=== PATIENT | female | born 1985 | race African-American/Black ===

== ENCOUNTER 2018-03-06 07:11 | Emergency (ER) | payer OTHER ==
[~2018-03-06] VITALS: Ht 152.4 cm; Wt 61.7 kg
--- NOTE | ~2018-03-06 | EKG ---
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
[~2018-03-06 07:11] MED LIST: AUGMENTIN 875875 MG PO; CENTRUM SILVER1 EAC4 PO; FLAGYL500 MG PO; IBUPROFEN 200200 M1 PO; IBUPROFEN 600600 M1 PO; KEFLEX500 M1 PO; NOHOMEMEDICATIONS; NORCO 5-325 TA1 EACH PO; PROTONIX40 M1 PO; TYLENOL SINUS1 EAC5 PO; ZPAK PO
[2018-03-06 07:43] LABS: ABSOLUTE NEUTROPHILS 3.4 thou/uL (1.4-8.2); EOSINOPHILS 1.1 % (0.0-3.0); LYMPHOCYTES 29.6 % (24.0-44.0); MCH 32.3 pg (26.0-34.0); MCHC 34.3 g/dL (28.0-37.0); MCV 94.2 fL (80.0-100.0); MONOCYTES 7.7 % (1.0-8.0); PLATELET COUNT 409 thou/uL (150-400); POLYS 60.6 % (36.0-66.0); RBC 3.71 mil/uL (4.20-5.00); RDW 13.6 % (10.5-14.5); WBC 5.6 thou/uL (4.0-11.0)
[2018-03-06 07:51] LABS: ANION GAP 8 mmol/L (7-16); BUN 13 mg/dL (7-18); CALCIUM 8.3 mg/dL (8.5-10.1); CHLORIDE 105 mmol/L (98-107); CO2 24 mmol/L (21-32); CREATININE 0.9 mg/dL (0.6-1.0); GLUCOSE 104 mg/dL (74-106); POTASSIUM 3.8 mmol/L (3.5-5.1); SODIUM 137 mmol/L (136-145)
[2018-03-06 08:00] LABS: TROPONIN-I < 0.04 ng/mL (<0.06)
[2018-03-06] MEDS ORDERED: NORCO 5-325 TA1 EACH PO ×2 (08:18→09:05)
[2018-03-06] MEDS ORDERED: TRAMADOL 50 MG50 MG PO (08:56)
[2018-03-06 09:02] VITALS: BP 131/69
[2018-03-06] MEDS ORDERED: FLEXERIL PO (09:05)
== END 2018-03-06 09:29 | disposition home or self-care (01) ==
LOC: ER 07:11
PROVIDERS: Emergency Medicine
DX: R09.1 Pleurisy (principal); R07.89 Other chest pain; Z87.891 Personal history of nicotine dependence

== ENCOUNTER 2020-04-25 07:22 | Emergency (ER) | payer OTHER ==
[~2020-04-25] VITALS: Ht 152.4 cm; Wt 58.1 kg
[~2020-04-25 07:22] MED LIST changes: +FLEXERIL PO; +TRAMADOL 50 MG50 MG PO
[2020-04-25 09:10] VITALS: BP 105/67
== END 2020-04-25 09:15 | disposition home or self-care (01) ==
LOC: ER 07:22
DX: R06.02 Shortness of breath (principal); Z20.828 Contact with and (suspected) exposure to other viral communicable diseases; R50.9 Fever, unspecified; R05 Cough; Z87.891 Personal history of nicotine dependence

== ENCOUNTER 2020-04-28 15:14 | Emergency (ER) | payer OTHER ==
[~2020-04-28] VITALS: Ht 152.4 cm; Wt 59.0 kg
[2020-04-28 17:01] VITALS: BP 105/69
[2020-04-28] MEDS ORDERED: MOBIC15 MG PO (17:04)
== END 2020-04-28 17:00 | disposition home or self-care (01) ==
LOC: ER 15:14
DX: S61.011A Laceration without foreign body of right thumb without damage to nail, initial encounter (principal); F17.210 Nicotine dependence, cigarettes, uncomplicated; W25.XXXA Contact with sharp glass, initial encounter; Y93.89 Activity, other specified; Y92.89 Other specified places as the place of occurrence of the external cause; Y99.8 Other external cause status